=== PATIENT | male | born 1950 | race African-American/Black ===

== ENCOUNTER 2016-07-25 08:45 | Inpatient (IN) | payer OTHER ==
[~2016-07-25] VITALS: Ht 182.9 cm; Wt 78.0 kg
--- NOTE | ~2016-07-25 | EKG ---
[address] [address] ELECTROCARDIOGRAM REPORT Name: MARIA R CHO Room #: 432-P ADM IN M.R.#: [id number] Admission: 07/25/16 Attend Phys: Coy Chau DO Discharge: Date of : 46 Report #: [id number] THIS REPORT FOR: //name// [facility] ED Test Date: 2016-07-25 Test Time: 08:56:25 Pat Name: MARIA R CHO Department: Room: 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
--- NOTE | ~2016-07-25 | HC ---
[facility] [place] [address] CONSULTATION Name: MARIA R CHO Charu Room #: 432-P [facility] IN M.R.#: [id number] Admission: 07/25/16 Attend Phys: Coy Chau DO Discharge: 07/27/16 Date of : 46 Report #: [id number] THIS REPORT FOR: //name// CC: Coy Chau REASON FOR CONSULTATION: Acute kidney injury. HISTORY OF PRESENT ILLNESS: This 66-year-old man has a history of pancreatic carcinoma. He has been undergoing recent chemotherapy and has had difficulties with his treatment including significant diarrhea. He received his most recent treatment several days ago and developed vomiting following this procedure. He presented to the emergency room in a dehydrated state and was admitted for further evaluation and treatment. The patient has no known prior renal history, specifically denying nephrolithiasis, acute kidney injury or urinary tract infection. 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 MEDICATIONS: On admission include Cardizem, Eliquis, Imodium, loperamide, Systane, lactulose, Linzess, Hyzaar 100/12.5, Remeron 15 mg daily, multivitamin, omeprazole, Lyrica, Xanax, CoQ10, Multaq, Cymbalta, TriCor and fentanyl patch. PERSONAL AND SOCIAL HISTORY: The patient is and lives with his . He is a social drinker and does smoke cigarettes on a daily basis. There is no history of substance abuse. REVIEW OF SYSTEMS: Remarkable as described in the history of present illness. PHYSICAL EXAMINATION: GENERAL: Reveals a well-developed, well-nourished male appearing his stated age, in no acute distress. VITAL SIGNS: Blood pressure 133/75, pulse ox 99%, temperature 36.7, pulse 77, respirations 17. SKIN: Warm and dry. There is poor turgor noted. There is no edema present. HEENT: Mucous membranes are dry. There is no JVD present. The head is normocephalic and atraumatic. The sclerae are white and the conjunctivae are not injected. The pharynx is benign. NECK: Supple. LUNGS: Zacarias are grossly clear to percussion and auscultation. CARDIOVASCULAR: Reveals a regular rate and rhythm without rub. ABDOMEN: Soft and nontender, without palpable mass or organomegaly. NEUROLOGIC: Reveals mild colonic twitches on a 1-2 per minute basis. There is no sustained activity. This patient is of slow mentation with a nonfocal examination. [address] [address] CONSULTATION Name: MARIA R CHO Room #: 432-P [facility] IN M.R.#: [id number] Admission: 07/25/16 Attend Phys: Coy Chau DO Discharge: 07/27/16 Date of : 46 Report #: [id number] LABORATORY STUDIES: Available at this time include sodium 134, potassium 4.8, chloride 98, CO2 of 27, BUN 51, creatinine 4.2, glucose 106, total bilirubin 1.5. Albumin 3.3. White blood cell count 9700, hemoglobin 11.1, hematocrit 31.8, platelet count 391,000. Urinalysis reveals clear yellow urine, specific gravity 1.020, pH 5, negative for glucose, ketones, bilirubin and blood. ASSESSMENT: 1. Acute kidney injury with a picture of prerenal azotemia. His urinalysis is absolutely bland making nephrotoxic acute kidney injury rather unlikely. I do not have the details of his recent chemotherapy, so I am unable to determine the likelihood of nephrotoxicity, but again I think this is rather unlikely given his bland urinalysis. He has been on an ARB and in addition to dehydration this is likely the explanation for his acute kidney injury. 2. Progressive pancreatic carcinoma, current details unknown at this time. 3. Vomiting, likely chemotherapy related. 4. Anemia. PLAN: We will continue isotonic hydration. I will obtain an abdominal ultrasound to assess renal size and rule out any other obstructive intraabdominal process. Unfortunately the patient has a rather poor prognosis given the nature and progression of his underlying pancreatic carcinoma. Further details from the oncology perspective as to the details of his chemotherapy would be helpful in management. Please see orders. <ELECTRONICALLY SIGNED> By: Clint Sandoval MD 07/29/16 0552 [id number] [id number] Cilnt Sandoval MD /nt
--- NOTE | ~2016-07-25 | HC ---
[facility] [place] [address] CONSULTATION Name: MARIA R CHO Charu Room #: 432-P ADM IN M.R.#: [id number] Admission: 07/25/16 Attend Phys: Coy Chau DO Discharge: Date of : 46 Report #: [id number] THIS REPORT FOR: //name// CC: Dr. Tom Reynolds MD REASON FOR CONSULTATION: Metastatic pancreatic cancer. HISTORY OF PRESENT ILLNESS: The patient is a 66-year-old gentleman with a history of metastatic pancreatic cancer, originally diagnosed 05/09/2015 in [place], [place]. , Gemzar and Abraxane were begun in June of 2015 and unfortunately, he had progressed with neuropathy and had to stop the chemo. He had begun chemotherapy with liposome Irinotecan and 5-FU on 05/13/2016. Unfortunately, a recent CAT scan done on 07/19/2016 shows progressive disease with increase in size of scattered small pulmonary nodules, significant progression of hepatic metastasis and mild progression of pancreatic tail mass and adjacent left adrenal metastasis as well as progression of retroperitoneal/omental metastasis and development of mild ascites. The patient and his briefly had this discussed with them this morning when I saw the patient. The patient came in today because of having a lightheaded spell at home and vomiting and was brought to the emergency room, where he was found to have a creatinine of about 4.2. Most recently, as an outpatient, his creatinine had been 1.28 on 07/16/2016. He has not been eating very well. He has not had diarrhea. His only episode of vomiting was actually after the ENT doctors got there. He had been lightheaded yesterday morning before he got admitted. He denies any fevers or any chills. He does feel lightheaded. His skin feels clammy. He does not have any swallowing trouble. He does not feel very hungry. He has not had any diarrhea. He has not had any dysuria. He has not had any new arm or leg swelling. PAST MEDICAL HISTORY: Past history is notable for the metastatic pancreatic cancer, status post Gemzar, Abraxane, recently 5-FU, leucovorin and liposome irinotecan with unfortunately progression. Also he has a history of hypertension, history of reflux, history of hyperlipidemia, history of COPD, history of obstructive sleep apnea, history of atrial fibrillation and anxiety disorder. Note that he also has a history of a GI bleed when he was recently in the hospital over at . He had a marooned-colored stool and his anticoagulation was held at that time. He has also had some trouble with pain and had seen Dr. Tom Silver. [facility] [address] [place] [address] CONSULTATION Name: MARIA R CHO Charu Room #: 432-P [facility] IN M.R.#: [id number] Admission: 07/25/16 Attend Phys: Coy Chau DO Discharge: Date of : 46 Report #: [id number] LABORATORY DATA: Recent labs here at [facility] include a BUN of 51, creatinine of 4.2. Electrolytes fairly normal. Direct bilirubin 0.9, total bilirubin 1.5 and lipase 314. AST 49. Phosphorus 6.5, albumin 3.3. White blood count 7.1, hemoglobin 12.1, MCV 82.7 and platelet count 467,000. U/A is unremarkable. The patient has an ultrasound of abdomen ordered. PHYSICAL EXAMINATION: GENERAL: The patient appears his stated age, is somewhat fuzzy and his agrees he has been somewhat fuzzy for about the last 2-3 days, a little bit hard time focusing. VITAL SIGNS: Height is 6 foot, weight is 172 pounds or 78 kilograms. Height would also be 182.9 cm. Blood pressure is 87/71 with respirations of 16, pulse of 106. He is afebrile at 98.8. HEENT: Face is symmetrical. Oropharynx clear, without erythema or leukoplakia. LUNGS: Seems to have clear respirations that are unlabored. HEART: Appears to be regular rate, as best I can tell. No definite murmurs. ABDOMEN: Slightly protuberant, slightly tender. No definite masses, not unusually tender. EXTREMITIES: Without clubbing, cyanosis or edema. DISCUSSION: I discussed with the patient that unfortunately his recent CAT scan shows progressive disease and I am not sure that he will tolerate additional chemotherapy at this time in point. At some point, we will try to work on his hydration and kidney function. I also talked briefly about code status. He tells me he is a full code. I told him that we may wish to rethink this because of his history of progressive disease and perhaps inability to cure him and also decide whether he wishes to be on a ventilator or not. We will ask Dr. Mcdonald from palliative care to come and see the patient. ASSESSMENT AND PLAN: 1. Metastatic pancreatic cancer with recent CAT scan showing progressive disease. Discussed with the patient and , not sure if the patient has other good therapeutic options for him. 2. Renal insufficiency. I appreciate renal's help on hydration. Ultrasound pending to look for obstruction. He did this earlier about a month ago at and regained kidney function. 3. Atrial fibrillation, rate appropriate at this point. 4. History of possible gastrointestinal bleeding while on Eliquis. Continue holding anticoagulation at this point. 5. Dehydration. Continue his IV fluids. 6. Pain. The patient's recently decreased fentanyl from 100 mcg to 75 mcg patch about 3 days ago. The patient is still using intermittent short-acting opiates for breakthrough pain. 7. Obstructive sleep apnea, intolerant to CPAP, not currently using. [facility] [address] [place] [address] CONSULTATION Name: MARIA R CHO Charu Room #: 432-P [facility] IN [facility]#: [id number] Admission: 07/25/16 Attend Phys: Coy Chau DO Discharge: Date of : 46 Report #: [id number] 8. History of chronic obstructive pulmonary disease. Aerosols as needed. We will follow with you. <ELECTRONICALLY SIGNED> By: Dick Dewey MD 07/26/16 1515 0913 1329 Dick Dewey MD /nt
--- NOTE | ~2016-07-25 | EKG ---
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
[~2016-07-25 08:45] MED LIST: ALPHA LIPOIC A600 M1 PO; ASTRAGALUS ROOT1 GM PO; BROMELAINS500 MG PO; CIMETIDINE200 MG PO; COQ-10100 MG PO; CYMBALTA60 MG PO; FENTANYL PATCH75 MCG TRANSDERM; GINKGO BILOBA40 M1 PO; GINSENG PO; GREEN TEA EXTRACT PO; HYDRALAZINE 5050 MG PO; HYZAAR 100-12.1 EACH PO; LINZESS145 MCG PO; LYRICA 50 MG50 MG PO; MEGA TAURINE1000 MG PO; MELATONIN10 M1 PO; MILK THISTLE140 M1 PO; MULTAQ400 MG PO; NORVASC5 MG PO; OMEPRAZOLE20 M2 PO; REMERON15 MG PO; RESVERATROL250 MG PO; ROXICODONE PO; SELENIMIN200 MCG PO; TRICOR145 MG PO; TURMERIC500 MG PO; UNICOMPLEX M TA1 TA1 PO; VITAMIN D32000 UNIT PO; VITAMIN E400 UNIT PO; XANAX 0.5 MG0.5 MG PO
[2016-07-25 08:46] VITALS: BP 104/65
[2016-07-25 10:14] LABS: HEMATOCRIT 31.8 % (42.0-52.0); HEMOGLOBIN 11.1 gm/dL (14.0-18.0); MCH 28.9 pg (26.0-34.0); MCHC 34.9 g/dL (28.0-37.0); MCV 82.8 fL (80.0-100.0); RBC 3.83 mil/uL (4.50-6.00); RDW 20.3 % (10.5-14.5); WBC 9.7 thou/uL (4.0-11.0)
[2016-07-25 10:22] LABS: CALCIUM 9.9 mg/dL (8.5-10.1); CREATININE 4.2 mg/dL (0.7-1.3); POTASSIUM 4.8 mmol/L (3.5-5.1)
[2016-07-25 10:29] LABS: ALBUMIN 3.6 g/dL (3.4-5.0); DIRECT BILIRUBIN 0.9 mg/dL (<0.1-0.3); TOTAL BILIRUBIN 1.5 mg/dL (<0.1-1.0); TOTAL PROTEIN 6.9 g/dL (6.4-8.2); TROPONIN-I 0.15 ng/mL (<0.04-0.07)
[2016-07-25] MEDS ORDERED: CARDIZEM CD120 MG PO (10:29)
[2016-07-25] MEDS ORDERED: ELIQUIS5 MG PO (10:29)
[2016-07-25] MEDS ORDERED: LOPERAMIDE 2 MG2 M1 PO (10:35)
[2016-07-25] MEDS ORDERED: SYSTANE 0.3-0.1 EACH OP (10:36)
[2016-07-25] MEDS ORDERED: CONSTULOSE10 GM/15 M PO (10:36)
[2016-07-25 11:17] LABS: URINE BILIRUBIN NEGATIVE (Negative); URINE BLOOD NEGATIVE (Negative); URINE COLOR YELLOW; URINE GLUCOSE-RANDOM* NEGATIVE (Negative); URINE KETONES NEGATIVE (Negative); URINE LEUKOCYTES-REFLEX NEGATIVE (Negative); URINE PROTEIN (DIPSTICK) NEGATIVE (Negative); URINE UROBILINOGEN 0.2 E.U./dl (0.2-1.0)
[2016-07-25 12:29] VITALS: BP 154/98
[2016-07-25 12:42] VITALS: BP 133/75
[2016-07-25 16:14] VITALS: BP 90/51
[2016-07-26] VITALS: BP 115/69
[2016-07-26 04:04] LABS: ALBUMIN 3.3 g/dL (3.4-5.0); CALCIUM 9.4 mg/dL (8.5-10.1); PHOSPHORUS 6.5 mg/dL (2.5-4.9); POTASSIUM 4.4 mmol/L (3.5-5.1)
[2016-07-26 04:45] LABS: HEMATOCRIT 34.7 % (42.0-52.0); HEMOGLOBIN 12.1 gm/dL (14.0-18.0); MANUAL DIFF YES; MCH 28.9 pg (26.0-34.0); MCHC 34.9 % (28.0-37.0); MCV 82.7 fL (80.0-100.0); RBC 4.19 mil/uL (4.50-6.00); WBC 7.1 thou/uL (4.0-11.0)
[2016-07-26 04:46] LABS: RDW 20.2 % (10.5-14.5)
[2016-07-26 05:05] VITALS: BP 152/73
[2016-07-26 06:53] LABS: ABSOLUTE NEUTROPHILS 4.8 thou/uL (1.4-8.2); NUCLEATED RBCS 1 /100WBC; TOTAL CELL COUNT 100
[2016-07-26 06:54] LABS: LARGE PLATELETS SEVERAL; PLATELET COUNT 467 thou/uL (150-400)
[2016-07-26 06:55] LABS: ANISOCYTOSIS 2+; MACROCYTES 2+
[2016-07-26 07:34] VITALS: BP 87/71
[2016-07-26 10:11] VITALS: BP 116/72
[2016-07-26 15:06] VITALS: BP 132/97
[2016-07-26 20:00] VITALS: BP 145/98; BP 189/88
[2016-07-27 04:41] LABS: HEMOGLOBIN 10.8 gm/dL (14.0-18.0); MCH 28.9 pg (26.0-34.0); MCHC 32.8 g/dL (28.0-37.0); RBC 3.74 mil/uL (4.50-6.00); RDW 21.8 % (10.5-14.5); WBC 5.8 thou/uL (4.0-11.0)
[2016-07-27 04:46] LABS: MCV 88.1 fL (80.0-100.0)
[2016-07-27 04:48] LABS: MANUAL DIFF YES
[2016-07-27 05:06] LABS: ALBUMIN 2.6 g/dL (3.4-5.0); CALCIUM 8.3 mg/dL (8.5-10.1); PHOSPHORUS 13.3 mg/dL (2.5-4.9)
[2016-07-27 05:11] LABS: CREATININE 5.6 mg/dL (0.7-1.3)
[2016-07-27 05:18] LABS: POTASSIUM 7.2 mmol/L (3.5-5.1)
[2016-07-27 05:49] LABS: ABSOLUTE NEUTROPHILS 3.8 thou/uL (1.4-8.2); METAMYELOCYTES 7 %; MYELOCYTES 1 %; NUCLEATED RBCS 4 /100WBC; TOTAL CELL COUNT 100
[2016-07-27 05:51] LABS: ANISOCYTOSIS 2+; PLATELET COUNT 383 thou/uL (150-400)
[2016-07-27 05:52] LABS: BURR CELLS 2+; LARGE PLATELETS SEVERAL; MACROCYTES 1+; MICROCYTES 1+; POLYCHROMASIA OCCASIONAL
== END 2016-07-27 04:48 | DRG 435 ==
LOC: ER 08:45 → EROBS 11:05 → 4E 11:05 → EROBS 12:30 → 4E 12:30
PROVIDERS: Emergency Medicine; Family Medicine; Internal Medicine Nephrology; Surgery
DX: C25.9 Malignant neoplasm of pancreas, unspecified (principal); G92 Toxic encephalopathy; N17.9 Acute kidney failure, unspecified; E86.0 Dehydration; Z66 Do not resuscitate; K21.9 Gastro-esophageal reflux disease without esophagitis; E78.5 Hyperlipidemia, unspecified; E86.9 Volume depletion, unspecified; J44.9 Chronic obstructive pulmonary disease, unspecified; I48.91 Unspecified atrial fibrillation; G47.33 Obstructive sleep apnea (adult) (pediatric); F41.9 Anxiety disorder, unspecified; D64.9 Anemia, unspecified; F17.210 Nicotine dependence, cigarettes, uncomplicated; Z51.5 Encounter for palliative care; Z86.718 Personal history of other venous thrombosis and embolism; Z79.899 Other long term (current) drug therapy
CPT/HCPCS: 10084